=== PATIENT | male | born 1965 | race Caucasian/White ===

== ENCOUNTER 2020-02-24 10:54 | Day surgery (SDC) | payer OTHER ==
[~2020-02-24] VITALS: Ht 188 cm; Wt 104.9 kg
[~2020-02-24 10:54] MED LIST: ADRENAL PO; B-COMPLEX WITH1 EAC2 PO; DEPO-TESTO200 MG/11 TOP; DHEA 50 MG TAB1 EACH PO; Ultram50 MG PO; VITAMIN D5000 UNIT PO
--- NOTE | 2020-02-24 12:11 | NUR ---
Ambulatory in Day Surgery Patient up to Ambulate independently. Gait steady. Surgical site prepped with 2% Chlorhexidine cloth wipe. Lungs clear T/O to Auscultation. Patient reports completing Chlorhexadine shower X2 prior to admission to hospital. Patient reports completing Chlorhexadine shower X2 prior to admission to hospital. PT AMBULTORY TO DAY SUREGRY. WEIGHED AND PLACED IN GOWN. PT HTN, NO HX OF SAME. OTHERWISE NORMAL VITAL SIGNS.
--- NOTE | 2020-02-24 14:54 | NUR ---
RECIEVED PATIENT AND REPORT FROM PACU VS WITH ELEVATED BP WHEN ADMITTED.
--- NOTE | 2020-02-24 15:20 | NUR ---
Discharge instructions reviewed with patient. Patient verbalizes understanding. Copy given to patient to take home. Patient States Post-Procedure ride home has been arranged. Discharged via wheelchair to private car for ride home.
== END 2020-02-24 15:15 | disposition home or self-care (01) ==
LOC: ORSCMMR 10:54 → ORSCSDS 02-25 07:30
DX: M65.841 Other synovitis and tenosynovitis, right hand (principal); S60.211D Contusion of right wrist, subsequent encounter
CPT/HCPCS: A9270; J0690; J1100; J1885; J2405; J2704; J2710; J3010; J7120

== ENCOUNTER 2020-06-30 06:15 | Day surgery (SDC) | payer OTHER ==
[~2020-06-30] VITALS: Ht 188 cm; Wt 104.6 kg
--- NOTE | 2020-06-30 07:38 | NUR ---
06/30/20 0738 Ashely Barr BUPIVACAINE 0.5% MIXED W/ LIDOCAINE 1% 1:100,000 1:1 PER ORDER FOR INJECTION AT OPSITE BY DR. HOPPER.
== END 2020-06-30 08:35 | disposition home or self-care (01) ==
LOC: ORSCSDS 06:15
PROVIDERS: Orthopaedic Surgery
PROC: 01N50ZZ Release Median Nerve, Open Approach (ICD-10-PCS; principal; 2020-06-30 07:30)
DX: G56.02 Carpal tunnel syndrome, left upper limb (principal); Z87.891 Personal history of nicotine dependence; Z79.899 Other long term (current) drug therapy
CPT/HCPCS: J0171; J0690; J2250; J2704; J3010; J7120

== ENCOUNTER 2020-10-27 07:04 | Day surgery (SDC) | payer OTHER ==
[~2020-10-27] VITALS: Ht 188 cm; Wt 107.3 kg
== END 2020-10-27 10:06 | disposition home or self-care (01) ==
LOC: ORSCSDS 07:04
PROVIDERS: Orthopaedic Surgery
PROC: 01N50ZZ Release Median Nerve, Open Approach (ICD-10-PCS; principal; 2020-10-27 08:30)
DX: G56.01 Carpal tunnel syndrome, right upper limb (principal); E66.9 Obesity, unspecified; Z68.30 Body mass index [BMI] 30.0-30.9, adult; Z87.891 Personal history of nicotine dependence; Z79.899 Other long term (current) drug therapy
CPT/HCPCS: J0171; J0690; J1100; J1885; J2250; J2405; J2704; J3010; J7120

== ENCOUNTER 2020-11-05 20:15 | Inpatient (IN) | payer OTHER ==
[~2020-11-05] VITALS: Ht 188 cm; Wt 106.0 kg
[2020-11-05 20:39] LABS: BASOPHILS ABSOLUTE AUTO 0.04 K/mm3 (0.00-0.23); BASOPHILS PERCENT AUTO 0 % (0-2); EOSINOPHILS ABSOLUTE AUTO 0.01 K/mm3 (0.00-0.68); EOSINOPHILS PERCENT AUTO 0 % (0-6); Hematocrit 54.7 % (37.0-53.0); Hemoglobin 19.2 g/dL (13.5-17.5); IMMATURE GRAN ABSOLUTE AUTO 0.07 K/mm3 (0.00-0.10); IMMATURE GRAN PERCENT AUTO 0 % (0-1); LYMPHOCYTES ABSOLUTE AUTO 1.81 K/mm3 (0.84-5.20); LYMPHOCYTES PERCENT AUTO 10 % (21-46); MONOCYTES ABSOLUTE AUTO 2.71 K/mm3 (0.16-1.47); MONOCYTES PERCENT AUTO 16 % (4-13); Mean Corpuscular HGB 31.1 pg (26.0-34.0); Mean Corpuscular HGB Conc 35.1 g/dL (31.5-36.5); Mean Corpuscular Volume 89 fL (80-100); Mean Platelet Volume 9.9 fL (9.1-12.4); NEUTROPHILS ABSOLUTE AUTO 12.73 K/mm3 (1.96-9.15); NEUTROPHILS PERCENT AUTO 73 % (41-73); Platelet Count 203 K/mm3 (150-400); RDW Coefficient Variation 13.5 % (11.7-14.2); RDW Standard Deviation 43.7 fL (35.1-46.3); Red Blood Cell Count 6.18 M/mm3 (4.30-5.90); White Blood Cell Count 17.37 K/mm3 (4.00-11.30)
[2020-11-05 21:00] LABS: Calcium, Ionized (POC) 1.21 mmol/L (1.10-1.46); Chloride (POC) 97 mmol/L (98-108); Creatinine (POC) 1.3 mg/dL (0.8-1.3); Glucose (ISTAT POC) 109 mg/dL (70-99); Hemoglobin (POC) 20.1 g/dL (13.5-17.5); Potassium (POC) 4.7 mmol/L (3.5-5.5); Sodium (POC) 136 mmol/L (135-148); Total CO2 (POC) 27 mmol/L (21-32)
[2020-11-05 21:02] LABS: Alanine Aminotransfer (ALT/SGP 98 U/L (12-78); Albumin, Blood 3.5 g/dL (3.4-5.0); Albumin/Globulin Ratio 0.8 (0.8-1.8); Alk Phos 60 U/L (50-136); Anion Gap 9 mmol/L (6-16); Aspartate Aminotrans (AST/SGOT 202 U/L (12-37); Bilirubin, Total 1.2 mg/dL (0.1-1.0); Blood Urea Nitrogen 16 mg/dL (8-24); Bun/Creatinine Ratio 14.7 (12.0-20.0); CO2, Blood 20 mmol/L (21-32); Calcium, Blood 9.3 mg/dL (8.5-10.1); Chloride, Blood 103 mmol/L (98-108); Creatinine, Blood 1.09 mg/dL (0.60-1.20); Globulin, Blood 4.5 g/dL (2.2-4.0); Glomerular Filtration Rate >60 (60-); Glucose, Blood 104 mg/dL (70-99); Potassium, Blood 4.1 mmol/L (3.5-5.5); Sodium, Blood 132 mmol/L (136-145)
--- NOTE | 2020-11-06 03:07 | NUR ---
ARRIVAL TO ICU PT ARRIVED TO ICU2 AT 2325 VIA ICU BED THAT WAS MOVED TO OENOLOGIST BEFORE TRANSFER. TR BAND TO RT RADIAL, SMALL HEMATOMA NOTED UPON ARRIVAL; OENOLOGIST STAFF HELD PRESSURE AND HEMATOMA IMPROVED. NO C/O CHEST PAIN, DYSPNEA, OR NAUSEA; ABD PAIN IMPROVED. PT IS ALERT/ORIENTED X4 AND ABLE TO MAKE HIS NEEDS KNOWN. SWITCHED TO RA AND SPO2 >97%. HR 90-110 NSR-ST; OCCATIONAL PVC'S. EKG COMPLETED 1HR POST ARRIVAL TO ICU. SBP 130-150'S. INDEPENDENTLY USES URINAL. SEE SURGE ADMISSION ASSESSMENT FOR FULL ASSESSMENT.
--- NOTE | 2020-11-06 05:29 | NUR ---
END OF SHIFT SUMMARY NO ACUTE EVENTS OVER NIGHT. PT SLEPT MINIMALLY T/O SHIFT. PT IS ALERT/ORIENTED X4 AND ABLE TO MAKE HIS NEEDS KNOWN. SPO2 >97% ON RA. HR 90-100. SBP 130-150. TR BAND TO RT RADIAL SHOWS NO SIGNS OF HEMATOMA, BLEEDING, OR INCREASED PAIN; SLOWLY REMOVING AIR FROM TR BAND, CURRENTLY 7ML OF AIR LEFT. NO C/O CHEST PAIN, DYSPNEA, OR ABD PAIN T/O SHIFT. CAN USE URINAL INDEPENDENTLY. WILL REPORT TO AM RN WHEN AVAILABLE.
[2020-11-06 07:37] LABS: BASOPHILS ABSOLUTE AUTO 0.03 K/mm3 (0.00-0.23); BASOPHILS PERCENT AUTO 0 % (0-2); EOSINOPHILS ABSOLUTE AUTO 0.01 K/mm3 (0.00-0.68); EOSINOPHILS PERCENT AUTO 0 % (0-6); Hematocrit 50.7 % (37.0-53.0); Hemoglobin 17.8 g/dL (13.5-17.5); IMMATURE GRAN ABSOLUTE AUTO 0.06 K/mm3 (0.00-0.10); IMMATURE GRAN PERCENT AUTO 0 % (0-1); LYMPHOCYTES ABSOLUTE AUTO 0.88 K/mm3 (0.84-5.20); LYMPHOCYTES PERCENT AUTO 6 % (21-46); MONOCYTES ABSOLUTE AUTO 1.94 K/mm3 (0.16-1.47); MONOCYTES PERCENT AUTO 13 % (4-13); Mean Corpuscular HGB 31.1 pg (26.0-34.0); Mean Corpuscular HGB Conc 35.1 g/dL (31.5-36.5); Mean Corpuscular Volume 89 fL (80-100); NEUTROPHILS ABSOLUTE AUTO 12.27 K/mm3 (1.96-9.15); NEUTROPHILS PERCENT AUTO 81 % (41-73); Platelet Count 183 K/mm3 (150-400); RDW Coefficient Variation 13.4 % (11.7-14.2); RDW Standard Deviation 43.7 fL (35.1-46.3); Red Blood Cell Count 5.72 M/mm3 (4.30-5.90); White Blood Cell Count 15.19 K/mm3 (4.00-11.30)
[2020-11-06 07:57] LABS: Anion Gap 8 mmol/L (6-16); Blood Urea Nitrogen 16 mg/dL (8-24); Bun/Creatinine Ratio 16.2 (12.0-20.0); CHOL/HDL RATIO 3.1; CO2, Blood 22 mmol/L (21-32); Calcium, Blood 8.8 mg/dL (8.5-10.1); Chloride, Blood 103 mmol/L (98-108); Cholesterol 151 mg/dL (50-200); Creatinine, Blood 0.99 mg/dL (0.60-1.20); Glomerular Filtration Rate >60 (60-); Glucose, Blood 102 mg/dL (70-99); HDL Cholesterol 48 mg/dL (>39); LDL/HDL RATIO 1.8; Low Density Lipoprotein Chol 84 mg/dL (0-110); Sodium, Blood 133 mmol/L (136-145); Triglycerides 93 mg/dL (30-160); Very Low Density Lipoprot Chol 18 mg/dL (6-32)
--- NOTE | 2020-11-06 08:33 | NUR ---
ASSUMED CARE FROM NOC SHIFT. PT RESTING COMFORTABLE IN BED. TRB IN RIGHT WRIST WITH AIR OF 5CC. TITRATING DOWN BY 2CC Q1. NOTED TO HAVE A FIRM/TENDER HEMATOMA ABOVE TRB. NO ACTIVE BLEEDING NOTED UNDER IT. STATES CHEST A LITTLE SORE BUT NO ACUTE CHEST PAIN OR SOB. LABS DRAWN AND ECHOCARDIOGRAM DOWN THIS AM. CONTINUE TO MONITOR AND TX PRN.
--- NOTE | 2020-11-06 09:19 | NUR ---
Echocardiogram using 0.50ml of Definity contrast performed.
--- NOTE | 2020-11-06 10:58 | NUR ---
DR LOYA HERE AT BEDSIDE TALKING WITH PATIENT.
--- NOTE | 2020-11-06 11:04 | NUR ---
NEW ORDERS TO GIVE ADD'L COREG 3.125MG PO NOW. DR REMOVED ARM SPLINT AND ACCESSED HEMATOMA AREA TO RIGHT WRIST. NO NEW INTERVENTIONS NEEDED.
--- NOTE | 2020-11-06 13:32 | NUR ---
BACK TO BED, WAS ABLE TO STAND UP AND URINATE IN TOILET WITHOUT DIFFICULTY. STATES HAS INDIGESTION AFTER EATING LUNCH WITH SOME EPIGASTRIC DISCOMFORT WHEN BELCHING. HR STABLE. CONTINUE TO MONITOR CLOSELY.
--- NOTE | 2020-11-06 14:10 | NUR ---
REPORT CALLED TO AKIN DANIELLE RN. STATUS CHANGED TO PCU. WILL TRANSFER VIA WHEELCHAIR.
--- NOTE | 2020-11-06 14:17 | NUR ---
TRANSFER TO PCU 9. INDIGESTION/CHEST DISCOMFORT RESOLVED.
--- NOTE | 2020-11-06 17:10 | NUR ---
STATUS UPDATE: PATIENT CONTINUING TO HAVE ELEVATED TEMPERATURES, THREE IN A ROW, VERIFIED WITH THERMAL THERMOMETER. INFORMED DR MADERA, WHOM TOLD ME SINCE HE HAS AN ELEVATED WBC COUNT TO ORDER A HOSPITALIST CONSULT, HOSPITAL CONSULT PLACED. DR. ROSA STAMPING OPERATOR PER BOB RN AT ER, CALL PLACED TO DR. ROSA NO FURTHER WORK UP NEEDED. DR. ROSA HAD NO QUESTIONS. WILL CONTINUE TO MONITOR.
--- NOTE | 2020-11-06 19:20 | NUR ---
PT LYING IN BED, LOW SEMI FOWLERS POSITION, TALKING TO HIS . PT HAS A FLUSHED FACE, AND UPPER CHEST, AND REPORTS THIS IS NORMAL FOR HIM. PT DENIES ANY HEADACHE, CHEST PAIN, NAUSEA, NUMBNESS/TINGLING, OR SOB. R TR BAND SITE - WNL - OPSITE APPLIED. PT REPORTS UPPER GASTRIC DISCOMFORT - 2/10 SCALE, WHICH HE REPORTS IS TOLERABLE. PT IS NPO AFTER MIDNIGHT TONIGHT - PT AWARE. CALL LIGHT WITHIN REACH. BED IN LOW POSITION. FLUIDS AT BEDSIDE.
[2020-11-06 21:43] LABS: Source, Urine Voided
[2020-11-06 21:45] LABS: Blood, Urine 2+ (Neg); Glucose Qualitative, Urine Neg (Neg); Ketones, Urine 1+ (Neg); Leukocyte Esterase, Urine 2+ (Neg); Nitrite, Urine Pos (Neg); Protein, Urine 2+ (Neg); Specific Gravity, Urine 1.015 (1.003-1.022); Urobilinogen, Urine 4+ (Normal)
[2020-11-06 21:48] LABS: Bilirubin, Urine 2+ (Neg)
[2020-11-06 21:52] LABS: Appearance, Urine Hazy (Clear); Color, Urine Amber (P-Yellow)
[2020-11-06 21:53] LABS: Bacteria Many /hpf; Mucus Mod (0-Heavy); Red Blood Cells, Urine 0-2 /hpf (0-2); Squamous Epithelial Cells Not Seen /hpf (Few)
[2020-11-07 04:26] LABS: BASOPHILS ABSOLUTE AUTO 0.02 K/mm3 (0.00-0.23); BASOPHILS PERCENT AUTO 0 % (0-2); EOSINOPHILS ABSOLUTE AUTO 0.01 K/mm3 (0.00-0.68); EOSINOPHILS PERCENT AUTO 0 % (0-6); Hematocrit 46.1 % (37.0-53.0); Hemoglobin 15.9 g/dL (13.5-17.5); IMMATURE GRAN ABSOLUTE AUTO 0.04 K/mm3 (0.00-0.10); IMMATURE GRAN PERCENT AUTO 0 % (0-1); LYMPHOCYTES ABSOLUTE AUTO 1.31 K/mm3 (0.84-5.20); LYMPHOCYTES PERCENT AUTO 11 % (21-46); MONOCYTES ABSOLUTE AUTO 2.39 K/mm3 (0.16-1.47); MONOCYTES PERCENT AUTO 20 % (4-13); Mean Corpuscular HGB 30.9 pg (26.0-34.0); Mean Corpuscular HGB Conc 34.5 g/dL (31.5-36.5); Mean Corpuscular Volume 90 fL (80-100); Mean Platelet Volume 9.8 fL (9.1-12.4); NEUTROPHILS ABSOLUTE AUTO 8.11 K/mm3 (1.96-9.15); NEUTROPHILS PERCENT AUTO 68 % (41-73); Platelet Count 215 K/mm3 (150-400); RDW Coefficient Variation 13.4 % (11.7-14.2); RDW Standard Deviation 44.3 fL (35.1-46.3); Red Blood Cell Count 5.14 M/mm3 (4.30-5.90); White Blood Cell Count 11.88 K/mm3 (4.00-11.30)
[2020-11-07 04:39] LABS: Anion Gap 8 mmol/L (6-16); Blood Urea Nitrogen 22 mg/dL (8-24); Bun/Creatinine Ratio 19.3 (12.0-20.0); CO2, Blood 22 mmol/L (21-32); Chloride, Blood 103 mmol/L (98-108); Creatinine, Blood 1.14 mg/dL (0.60-1.20); Glomerular Filtration Rate >60 (60-); Glucose, Blood 103 mg/dL (70-99); Potassium, Blood 4.1 mmol/L (3.5-5.5); Sodium, Blood 133 mmol/L (136-145)
--- NOTE | 2020-11-07 05:32 | NUR ---
SHIFT SUMMARY - NO ACUTE CHANGES THROUGHOUT THIS SHIFT. PT DID REPORT MID UPPER GASTRIC PAIN 4/10 X1, RELIEVED WITH TYLENOL, AND LEFT SIDED SHOULDER/ NECK PAIN, ALSO RELIEVED WITH TYLENOL. PT DENIED ANY CHEST PAIN, OR SOB. PT NPO AT MIDNIGHT. PT SLEPT FOR APPX 5-6 HOURS TONIGHT. CALL LIGHT WITHIN REACH. BED IN LOW POSITION. WILL CONTINUE TO MONITOR UNTIL AM SHIFT.
--- NOTE | 2020-11-07 09:48 | NUR ---
INITIAL SUMMARY: PATIENT AWAITING ADDITIONAL CARDIAC PROCEDURES, PROVIDER CAME IN AND GAVE A TIME FRAME OF AROUND 10. PATIENT DENIES CHEST PAIN/TENDERNESS AT THIS TIME. SOME MUSCULOSKELETAL TENDERNESS OF THE LEFT NECK, RESOLVED WITH HEATING PAD. NO BM BUT ENDORSES PASSING GAS. CARDIAC RHYTHYM IS HIGH 90'S TO 100'S
[2020-11-07 11:31] LABS: SARS-Cov-2 (COVID-19) PCR, MMC NEGATIVE (NEGATIVE)
[2020-11-07] MEDS ORDERED: ASPI81CH PO (17:50)
[2020-11-07] MEDS ORDERED: CARV6.25 PO (17:52)
[2020-11-07] MEDS ORDERED: TICA90TA PO (17:53)
[2020-11-07] MEDS ORDERED: LISI10 PO (17:53)
[2020-11-07] MEDS ORDERED: ATOR80 PO (17:55)
--- NOTE | 2020-11-07 18:15 | NUR ---
DISCHARGE AND END OF SHIFT SUMMARY: PATIENTS FEVER BROKE THROUGH THE NIGHT WITH X 2 DOSES OF TYLENOL, BEEN RUNING LESS THAN 99.0 THROUGHOUT THE ENTIRE DAY. 3RD STENT PLACED IN CIRC, TOLERATED WELL WAS IN THE SAME RADIAL SITE, (RIGHT RADIAL), ALL AIR OF TR BAND AT 1836. PATIENT TOLERATED WELL HAS BEEN RECIEVING 50 mL OF NS THROUGHT THE SHIFT AND ONCE RETURNED. DENIES ANY CHEST PAIN OR TENDERNESS, EAGER TO DISCHARGE, IS WAITING IN THE PARKING LOT.
== END 2020-11-07 19:50 | disposition home or self-care (01) | DRG 247 ==
LOC: ER 20:15 → ICUW 21:12 → ICUE 21:12 → PCU 21:12 → ICUE 23:22 → PCU 11-06 14:34
PROVIDERS: Internal Medicine; Physician Assistant; Student in an Organized Health Care Education/Training Program; ADMIT Internal Medicine Cardiovascular Disease
PROC: 027035Z Dilation of Coronary Artery, One Artery with Two Drug-eluting Intraluminal Devices, Percutaneous Approach (ICD-10-PCS; principal; 2020-11-05)
PROC: 02703ZZ Dilation of Coronary Artery, One Artery, Percutaneous Approach (ICD-10-PCS; 2020-11-05)
PROC: 02C03ZZ Extirpation of Matter from Coronary Artery, One Artery, Percutaneous Approach (ICD-10-PCS; 2020-11-05)
PROC: 4A023N7 Measurement of Cardiac Sampling and Pressure, Left Heart, Percutaneous Approach (ICD-10-PCS; 2020-11-05)
PROC: B2111ZZ Fluoroscopy of Multiple Coronary Arteries using Low Osmolar Contrast (ICD-10-PCS; 2020-11-05)
DX: I21.09 ST elevation (STEMI) myocardial infarction involving other coronary artery of anterior wall (principal); Z20.822 Contact with and (suspected) exposure to COVID-19; I25.5 Ischemic cardiomyopathy; I25.10 Atherosclerotic heart disease of native coronary artery without angina pectoris; R50.9 Fever, unspecified; D72.829 Elevated white blood cell count, unspecified; Z88.0 Allergy status to penicillin; Z79.899 Other long term (current) drug therapy; Z98.890 Other specified postprocedural states; Z87.891 Personal history of nicotine dependence
CPT/HCPCS: 36415; 71045; 76937; 80047; 80048; 80053; 80061; 81001; 83690; 84484; 85014; 85025; 85347; 87077; 87086; 87186; 92921; 92941; 92973; 93005; 93010; 93454; 93458; 99152; 99153; 99285-25; A9270; C1725; C1757; C1769; C1874; C1887; C1894; C8929; C9600; C9606; J1644; J2250; J2370; J3010; J3246; J7030; J7040; J7050; Q9957; Q9967; U0004